=== PATIENT | male | born 1980 | race African-American/Black ===

== ENCOUNTER 2021-10-12 06:24 | Emergency (ER) | payer SELFPAY ==
[~2021-10-12] VITALS: Ht 182.9 cm; Wt 68.0 kg
[2021-10-12] MEDS ORDERED: LORAZEPAM 2MG/ML CPJ IV ONE (06:45)
[2021-10-12] MEDS ORDERED: MIDAZOLAM HCL 2 MG/2 ML VIAL IM ONE (08:45)
[2021-10-12 09:54] LABS: BASOPHILS % 0.4 % (0.0-2.0); EOSINOPHILS % 0.3 % (0.0-5.0); HEMATOCRIT. 43.4 % (42.0-52.0); HEMOGLOBIN. 14.3 g/dL (14.0-18.0); LYMPHOCYTES % 13.4 % (20.0-50.0); MEAN CORPUSCULAR HEMOGLOBIN 30.2 pg (28.0-32.0); MEAN CORPUSCULAR VOLUME 91.9 fL (80.0-94.0); MEAN PLATELET VOLUME 9.7 fl (7.4-10.4); MONOCYTES % 9.6 % (2.0-8.0); NEUTROPHILS % 76.3 % (40.0-76.0); PLATELET 196 x1000/uL (130-400); RED BLOOD CELL COUNT 4.73 mill/uL (4.7-6.1); RED CELL DISTRIBUTION WIDTH 15.6 % (11.6-14.6)
[2021-10-12 09:57] LABS: CHLORIDE 106 mEq/L (98-107)
[2021-10-12 10:06] LABS: ETHANOL BLOOD < 10 mg/dL
[2021-10-12 11:50] VITALS: BP 124/82
== END 2021-10-12 12:00 | disposition home or self-care (01) ==
LOC: ER 06:24
DX: G40.909 Epilepsy, unspecified, not intractable, without status epilepticus (principal); S09.8XXA Other specified injuries of head, initial encounter; R45.1 Restlessness and agitation; R62.50 Unspecified lack of expected normal physiological development in childhood; X58.XXXA Exposure to other specified factors, initial encounter; Y93.89 Activity, other specified; Y92.098 Other place in other non-institutional residence as the place of occurrence of the external cause
CPT/HCPCS: 36415; 80053; 80165; 80320; 85025; 96372; 99283; J2250; G0480